=== PATIENT | female | born 1985 | race Hispanic/Latino ===

== ENCOUNTER 2018-02-21 11:59 | Emergency (ER) | payer OTHER | END 2018-02-21 16:14 | disposition home or self-care (01) | LOC: EDH 11:59 | DX: S00.212A Abrasion of left eyelid and periocular area, initial encounter (principal); J45.909 Unspecified asthma, uncomplicated; E11.9 Type 2 diabetes mellitus without complications; Z88.6 Allergy status to analgesic agent; Z98.890 Other specified postprocedural states; W22.8XXA Striking against or struck by other objects, initial encounter; Y93.89 Activity, other specified; Y92.098 Other place in other non-institutional residence as the place of occurrence of the external cause; Y99.8 Other external cause status | CPT/HCPCS: 70450; 81025; 82948 ==

== ENCOUNTER 2020-03-30 05:59 | Day surgery (SDC) | payer BC ==
[2020-03-23 11:34] LABS: BASOPHILS % (AUTO) 1.1 % (0.0-5.0); EOSINOPHILS % (AUTO) 4.8 % (0.0-8.0); HEMATOCRIT 42.4 % (36-48); MEAN CORPUSCULAR HEMOGLOBIN 31.3 pg (27.0-33.0); MEAN CORPUSCULAR HGB CONC 34.2 g/dL (32.0-36.0); MEAN CORPUSCULAR VOLUME 91.6 fL (79-99); MONOCYTES % (AUTO) 6.3 % (3.0-13.0); NEUTROPHILS % (AUTO) 54.3 % (40.0-77.0); PLATELET COUNT (AUTO) 362 K/uL (130-400); RED BLOOD CELL COUNT(AUTO) 4.63 MIL/uL (4.00-5.50); RED CELL DISTRIBUTION WIDTH 11.6 % (11.0-15.5); WHITE BLOOD COUNT (AUTO) 7.3 K/uL (4.8-10.8)
[2020-03-23 11:44] LABS: CREATININE 0.8 mg/dL (0.5-1.5)
[~2020-03-30] VITALS: Ht 161.3 cm; Wt 66.7 kg
[2020-03-30] VITALS (17 sets, daily range): BP systolic 88–120; BP diastolic 50–86
[~2020-03-30 05:59] MED LIST: FEXO180T94 PO; FLUT1BLS IH; IBUP-2784 PO; LOESTRIN FE PO; OLOP5DRO21 OP; VITAMIN D PO
[2020-03-30] MEDS ORDERED: CEFAZOLIN SODIUM 1 GM VIAL ONE (06:24)
[2020-03-30] MEDS ORDERED: LACTATED RINGERS 1000ML 1,000 ML IV ONE (06:24)
[2020-03-30] MEDS ORDERED: MIDAZOLAM HCL 1 MG/ML 2ML VIAL ONE ×2 (07:54→07:58)
[2020-03-30] MEDS ORDERED: DEXAMETHASONE SOD PHOSPHATE 10MG/ML 1ML VIAL ONE (07:57)
[2020-03-30] MEDS ORDERED: ONDANSETRON HCL 4 MG/2 ML VIAL ONE (07:57)
[2020-03-30] MEDS ORDERED: PROPOFOL 10 MG/ML 20ML VIAL IV ONE (07:57)
[2020-03-30] MEDS ORDERED: LIDOCAINE PF 2% 5ML ABBOJECT ONE (07:57)
[2020-03-30] MEDS ORDERED: FENTANYL CITRATE PF 50 MCG/1 ML 2ML VIAL ONE ×2 (07:58→08:45)
[2020-03-30] MEDS ORDERED: ROCURONIUM 10MG/1ML SYR 10 MG/ML ML ONE (07:58)
[2020-03-30] MEDS ORDERED: EPINEPHRINE 1 MG/ML 30ML VIAL IJ ONE (08:36)
[2020-03-30] MEDS ORDERED: GLYCOPYRROLATE 1 MG/5 ML SYRINGE ONE (08:59)
[2020-03-30] MEDS ORDERED: NEOSTIGMINE 5MG/5ML SYR IV ONE (08:59)
[2020-03-30] MEDS ORDERED: SUGAMMADEX SODIUM 200 MG/2 ML VIAL IV ONE (09:04)
[2020-03-30] MEDS ORDERED: IBUP-2070 PO (09:29)
[2020-03-30] MEDS ORDERED: HYDR-4060 PO (09:29)
== END 2020-03-30 11:30 | disposition home or self-care (01) ==
LOC: DAH 05:59
PROVIDERS: ATTEND Orthopaedic Surgery
DX: M75.02 Adhesive capsulitis of left shoulder (principal); J45.909 Unspecified asthma, uncomplicated; Z90.89 Acquired absence of other organs; Z98.890 Other specified postprocedural states; Z88.6 Allergy status to analgesic agent; Z79.899 Other long term (current) drug therapy; Z20.828 Contact with and (suspected) exposure to other viral communicable diseases
CPT/HCPCS: 23700; 36415; 64415; 80048; 84703; 85025; A4215; A4221; A4222; A4223; A4600; A4663; A4930; A5120; A6204; A6260; C9803; G0168; J0690; J1030; J1100; J2001; J2250 ×2; J2405; J2704; J2710; J3010 ×2; J3490; J7030; J7120; U0003; J0171

== ENCOUNTER → 2024-10-23 | Outpatient (CLI) | payer BC ==
[~2024-10-23] MED LIST changes: +HYDR-4060 PO; +IBUP-2070 PO; -IBUP-2784 PO
== END | disposition home or self-care (01) ==
LOC: RAH 10:29
PROVIDERS: ATTEND Obstetrics & Gynecology
DX: Z12.31 Encounter for screening mammogram for malignant neoplasm of breast (principal)
CPT/HCPCS: 77067